=== PATIENT | female | born 1950 | race Caucasian/White ===

== ENCOUNTER 2016-08-17 11:42 | Day surgery (SDC) | payer MEDICARE, OTHER ==
--- NOTE | ~2016-08-17 | EGD ---
EGD REPORT [facility] [address] [address] NAME: JOSÉ ANTONIO GRULLON : 52 STATUS : REG [facility]#: [id number] AGE: 66 ADM/REG DATE : 08/17/16 MR#: [id number] REPORT SERV DATE: 08/17/16 DICTATED BY: ANIA RAMON DATE: 08/17/16 REPORT STATUS : Draft [facility]: [facility] DATE: 08/17/16 Pulmonology Patient Name: José Antonio Grullon Procedure Date: 08/17/2016 3:04 PM Date of : 1950 Attending MD: CLARE RAMON MD Procedure Date No Time: 08/17/2016 Procedure: EBUS Indications: RML infiltrate, history of sarcoidosis. Providers: CLARE RAMON MD Referring MD: BOOGIE ESQUIVEL MD Medicines: Lidocaine 2% 20 mL Complications: No immediate complications Procedure: Pre-Anesthesia Assessment: - ASA Grade Assessment: III - A patient with severe systemic disease. - A History and Physical has been performed. Patient meds and allergies have been reviewed. The risks and benefits of the procedure and the sedation options and risks were discussed with the patient. All questions were answered and informed consent was obtained. Patient identification and proposed procedure were verified prior to the procedure by the physician and the nurse in the pre-procedure area. Mental Status Examination: alert and oriented. CV Examination: normal. ASA Grade Assessment: II - A patient with mild systemic disease. After reviewing the risks and benefits, the patient was deemed in satisfactory condition to undergo the procedure. The anesthesia plan was to use monitored anesthesia care (MAC). Immediately prior to administration of medications, the patient was re-assessed for adequacy to receive sedatives. The heart rate, respiratory rate, oxygen saturations, blood pressure, adequacy of pulmonary ventilation, and response to care were monitored throughout the procedure. The physical status of the patient was re-assessed after the procedure. After obtaining informed consent, the BF [id number] was introduced through the mouth, via the endotracheal tube (the patient was intubated for the procedure) and advanced to the tracheobronchial tree. the Bronchoscope was introduced through the mouth, via the endotracheal tube (the patient was intubated for the procedure) and advanced to the tracheobronchial tree. The procedure was accomplished without difficulty. The patient tolerated the procedure well. EGD REPORT [address] [place]. [address] NAME: JOSÉ ANTONIO GRULLON : [birth year] STATUS : REG [facility] PAT#: [id number] AGE: 66 ADM/REG DATE : 08/17/16 MR#: [id number] REPORT SERV DATE: 08/17/16 DICTATED BY: ANIA RAMON DATE: 08/17/16 REPORT STATUS : Draft TRANSCRIBED BY: [employer] DATE: 08/17/16 Findings: The endotracheal tube is in good position. The visualized portion of the trachea is of normal caliber. The erwin is sharp. The tracheobronchial tree was examined to at least the first subsegmental level. Bronchial mucosa and anatomy are normal; there are no endobronchial lesions, and no secretions. EBUS TBNA of lymph node level 7 x 6 passes for cytology and cultures EBUS TBNA of lymph node level 11R x 4 passes for cytology Bronchoalveolar lavage was performed in the right middle lobe of the lung and sent for cell count, cytology, bacterial culture, viral smears \T\ culture, and fungal and AFB analysis. 180 mL of fluid were instilled. 30 mL were returned. The return was cellular. There were no mucoid plugs in the return fluid Fluoroscopically guided transbronchial brushings were obtained in the right middle lobe of the lung and sent for routine cytology and bacterial, AFB and fungal analysis. Two samples were obtained. Transbronchial biopsies were performed in the right middle lobe of the lung using forceps and sent for histopathology examination. The procedure was guided by fluoroscopy. Six biopsy passes were performed. Four biopsy samples were obtained. Impression: - The examination was normal. - Bronchoalveolar lavage was performed. - Fluoroscopically guided transbronchial brushings were obtained. - Transbronchial lung biopsies were performed. - EBUS TBNA of lymph nodes 7 and 11R were obtained. Recommendation: - Await test results. - Chest X-ray. - Follow up with referring physician. Attending Participation: I personally performed the entire procedure. CLARE RAMON MD 08/17/2016 4:09 PM This report has been signed electronically. Number of Addenda: 0 Note Initiated On: 08/17/2016 3:04 PM [address] [address]
[~2016-08-17 11:42] MED LIST: SYN112 PO; VITA D2 PO
[2016-08-17 12:02] LABS: BASOPHILS 0.6 %; BASOPHILS ABSOLUTE 0.04 10/3/uL (0.0-0.16); EOSINOPHILS 2.9 %; HEMATOCRIT 44.1 % (36.0-48.0); IMMATURE GRANULOCYTES 0.3 %; IMMATURE GRANULOCYTES ABSOLUTE 0.02 10/3/uL (0.0-0.11); LYMPHOCYTES 26.7 %; LYMPHOCYTES ABSOLUTE 1.84 10/3/uL (0.67-4.30); MEAN CORPUSCULAR HEMOGLOB 31.2 pg (26.0-34.0); MEAN CORPUSCULAR VOLUME 91.7 fL (80-100); MEAN PLATELET VOLUME 10.2 fL (9.2-13.0); MONOCYTES 5.8 %; NEUTROPHILS 63.7 %; PLATELET COUNT 292 10/3/uL (150-400); RBC DISTRIBUTION WIDTH 12.9 % (12.0-16.0); RED CELL COUNT 4.81 10/6/uL (4.0-5.6); WHITE BLOOD CELLS 6.9 10/3/uL (4.5-10.5)
[2016-08-17 12:04] LABS: MANUAL DIFF NO %
[2016-08-17 12:07] LABS: PROTIME (NOT ORD) 13.5 SEC (12.0-14.5)
[2016-08-17 19:17] LABS: BD FL LYMPH (NOT ORD) 14 %; BD FL SOURCE (NOT ORD) BAL; BF BASO (NOT OF) 0 %; BF LARGE MONONUCLEAR 65 %; BF TOTAL CELL CT (NOT ORD 722 /MM3; BODY FLUID EOS (NOT ORD) 0 %; BODY FLUID RBC (NOT ORD) < 10 /MM3; BODY FLUID SEG (NOT ORD) 21 %
== END 2016-08-17 17:55 | disposition home or self-care (01) ==
LOC: DMU 11:42
PROVIDERS: Internal Medicine
PROC: 0B9D8ZX Drainage of Right Middle Lung Lobe, Via Natural or Artificial Opening Endoscopic, Diagnostic (ICD-10-PCS; principal; 2016-08-17 13:00)
PROC: 07B74ZX Excision of Thorax Lymphatic, Percutaneous Endoscopic Approach, Diagnostic (ICD-10-PCS; 2016-08-17 13:00)
PROC: 0BBD8ZX Excision of Right Middle Lung Lobe, Via Natural or Artificial Opening Endoscopic, Diagnostic (ICD-10-PCS; 2016-08-17 13:00)
PROC: 0B928ZX Drainage of Carina, Via Natural or Artificial Opening Endoscopic, Diagnostic (ICD-10-PCS; 2016-08-17 13:00)
PROC: 8E0WXBF Computer Assisted Procedure of Trunk Region, With Fluoroscopy (ICD-10-PCS; 2016-08-17 13:00)
DX: J18.9 Pneumonia, unspecified organism (principal); J84.10 Pulmonary fibrosis, unspecified; E03.9 Hypothyroidism, unspecified; Z79.899 Other long term (current) drug therapy; Z90.710 Acquired absence of both cervix and uterus; Z98.890 Other specified postprocedural states
CPT/HCPCS: 71010; 85025; 85610; 85730; 87015; 87070; 87101; 87102; 87116; 87205; 88112; 88172; 88173; 88305; 88312; 88333; 89051; 93005; A9270-GY; C1725; J2250; J2405; J2710; J3010